=== PATIENT | male | born 1970 | race Caucasian/White ===

== ENCOUNTER → 2017-05-06 | Outpatient (CLI) | payer BC ==
[~2017-05-06] MED LIST: ALBUTEROL17 GM INH; CIPRO PO; CLARITIN D; CYMBALTA PO; FLAGYL PO; FLEXERIL PO; KADIAN PO; LORTAB 10/500 T1 TAB; LORTAB 7.5-5001 TAB PO; NEURONTIN; PHENERGAN PO; PREDNISONE PO; SINGULAIR PO; SYMBICORT INH; WELLBUTRIN XL PO
--- NOTE | ~2017-05-06 | CT105 ---
[facility] A Service of [facility] RADIOLOGY TEXT RESULTS PATIENT: DANIEL [facility]ALLO [facility] #: [id number] AGE: [address]: FOX COVARRUBIAS MD SEX: M ORDER DR: [id number] [facility] [address] [place], [place] [address] [id number] O MR#: [id number] Acc #: [id number] NAME: DANIEL CARBALLO : 1970 SEX: M STUDY DATE/TIME: 05/06/2017 9:48 UNIT: CCAT ROOM: STUDY DESCRIPTION: CT Pelvis W Cont Attending Physician: Ho Covarrubias M.D. Referring Physician: Ho Covarrubias M.D. Ordering Physician: Ho Covarrubias M.D. Primary Care Physician: Ho Covarrubias M.D. MEDICAL IMAGING REPORT This report is preliminary unless electronic signature is present EXAM CT pelvis with contrast. INDICATION Right inguinal and rectal pain for the past week. PROCEDURE Contrast-enhanced CT of the pelvis. This CT exam was performed with one or more of the following radiation dose reduction techniques: automatic exposure control, adjustment of mA and/or kV according to patient size, and iterative reconstruction. COMPARISON 01/16/10 FINDINGS Included bowel loops are nondilated. There are a few uncomplicated sigmoid diverticula. There is no deep pelvic mass or fluid. No abnormal perirectal thickening, enhancement or drainable fluid collection. High-riding right testicle. Probable trace left hydrocele. No aggressive-appearing bone lesion. IMPRESSION 1. No clearly acute findings. 2. High-riding right testicle and a few uncomplicated sigmoid diverticula. Trace left hydrocele. Dictated by... Berto Durant M.D. THIS IS AN ELECTRONICALLY VERIFIED REPORT Berto Durant M.D. at 05/06/2017 10:23 PM [facility] A Service of [facility] RADIOLOGY TEXT RESULTS PATIENT: DANIEL CARBALLO [id number] : 70 UNIT #: [id number] AGE: [address]: FOX COVARRUBIAS MD SEX: M ORDER DR: Andre TD: 05/06/2017 21:27 JOB #: [id number] MEDICAL IMAGING REPORT Page 1 of 1 COPY
== END | disposition home or self-care (01) ==
LOC: CCAT 07:57
DX: R10.30 Lower abdominal pain, unspecified (principal); K57.30 Diverticulosis of large intestine without perforation or abscess without bleeding
CPT/HCPCS: 72193; Q9967